=== PATIENT | male | born 1985 | race Caucasian/White ===

== ENCOUNTER → 2022-02-24 | Outpatient (CLI) | payer BC, OTHER | END | disposition home or self-care (01) | LOC: PREOP 05:31 | PROVIDERS: ATTEND Surgery | DX: Z01.818 Encounter for other preprocedural examination (principal) ==

== ENCOUNTER 2022-06-09 05:32 | Outpatient (CLI) | payer OTHER ==
[~2022-06-09] VITALS: Ht 180.3 cm; Wt 105.5 kg
[~2022-06-09 05:32] MED LIST: FLUT1AER4 IH; RT-ALBUINH INH
[2022-06-14] MEDS ORDERED: CETI10CA PO (10:05)
== END 2022-06-14 11:07 | disposition home or self-care (01) ==
LOC: PREOP 05:32
PROVIDERS: ATTEND Otolaryngology Otolaryngology/Facial Plastic Surgery
DX: Z01.818 Encounter for other preprocedural examination (principal)

== ENCOUNTER 2022-06-16 06:49 | Day surgery (SDC) | payer OTHER ==
[~2022-06-16] VITALS: Ht 180.3 cm; Wt 105.5 kg
[2022-06-16] VITALS (11 sets, daily range): BP systolic 91–138; BP diastolic 54–92
[~2022-06-16 06:49] MED LIST changes: +CETI10CA PO
[2022-06-16] MEDS ORDERED: HYDROCORTISONE 100 MG/2 ML (Solu-CORTEF) VIAL IV ONE (07:15)
[2022-06-16] MEDS ORDERED: AMPICILLIN/SULBACTAM INJECTION 1.5 GM in NS (IVPB) 100 ML IV ONE (07:15)
[2022-06-16] MEDS: LACTATED RINGERS 1,000 ML IV PRN ×2 (07:18→10:33)
[2022-06-16 07:34] LABS: BASOPHILS # (AUTO) 0.1 10^3/uL (0.0-0.1); BASOPHILS % (AUTO) 1 % (0-10); EOSINOPHILS # (AUTO) 0.1 10^3/uL (0.0-0.3); EOSINOPHILS % (AUTO) 1 % (0-10); HEMATOCRIT 46 % (40-54); HEMOGLOBIN 15.6 g/dL (13.3-17.7); LYMPHOCYTES # (AUTO) 7.7 10^3/uL (1.0-4.0); LYMPHOCYTES % (AUTO) 54 % (12-44); MEAN CORPUSCULAR HEMOGLOBIN 30 pg (25-34); MEAN CORPUSCULAR HGB CONC 34 g/dL (32-36); MEAN CORPUSCULAR VOLUME 90 fL (80-99); MEAN PLATELET VOLUME 9.7 fL (9.0-12.2); MONOCYTES # (AUTO) 1.1 10^3/uL (0.0-1.0); MONOCYTES % (AUTO) 8 % (0-12); NEUTROPHILS # (AUTO) 5.1 10^3/uL (1.8-7.8); NEUTROPHILS % (AUTO) 36 % (42-75); PLATELET COUNT 353 10^3/uL (130-400); WHITE BLOOD COUNT 14.1 10^3/uL (4.3-11.0)
[2022-06-16 07:54] LABS: CALCIUM 8.2 MG/DL (8.5-10.1); CREATININE SERUM 1.09 MG/DL (0.60-1.30); POTASSIUM 3.7 MMOL/L (3.6-5.0)
[2022-06-16 08:09] LABS: BASOPHILS % (MANUAL) 2 %; EOSINOPHILS % (MANUAL) 3 %; LYMPHOCYTES % (MANUAL) 37 %; MONOCYTES % (MANUAL) 3 %; NEUTROPHILS % (MANUAL) 36 %; REACTIVE LYMPHOCYTES 19 %
[2022-06-16 08:10] LABS: HYPERSEGMENTED NEUT SLIGHT; RBC MORPH NORMAL
[2022-06-16] MEDS ORDERED: BSS 15 ML ONE (08:25)
[2022-06-16] MEDS ORDERED: COCAINE HCL 4% 2 ML SYR ONE (08:25)
[2022-06-16] MEDS ORDERED: PHENYLEPHRINE 0.5% NASAL SPR (NEO-SYNEPHRINE) REG ONE ×2 (08:25→09:05)
[2022-06-16] MEDS ORDERED: LIDOCAINE/EPI 1%-1:100,000 (XYLOCAINE) 20ML ONE ×2 (08:25→10:14)
[2022-06-16] MEDS ORDERED: MIDAZOLAM 2 MG/2 ML (VERSED) VIAL ONE (08:40)
[2022-06-16] MEDS ORDERED: GLYCOPYRROLATE 0.2 MG/ML (ROBINUL) 2 ML VIAL ONE (08:40)
[2022-06-16] MEDS ORDERED: ONDANSETRON 4 MG/2 ML (SDV) Z0FRAN ONE (08:40)
[2022-06-16] MEDS ORDERED: LIDOCAINE PF 2% 5 ML (XYLOCAINE) VIAL ONE (08:40)
[2022-06-16] MEDS ORDERED: fentaNYL INJ 100 MCG/2 ML AMP ONE (08:40)
[2022-06-16] MEDS ORDERED: proPOfol 200 MG/20 ML (DIPRIVAN) VIAL IV ONE (08:40)
[2022-06-16] MEDS ORDERED: ROCURONIUM 50 MG/5 ML (ZEMURON) VIAL IV ONE (08:41)
[2022-06-16] MEDS ORDERED: NEOSTIGMINE (BLOXIVERZ ) 1 MG/1ML 10 ML VIAL ONE (08:41)
[2022-06-16] MEDS ORDERED: BSS 15 ML IO ONE (09:02)
[2022-06-16] MEDS ORDERED: COCAINE HCL 4% 2 ML SYR TOP ONE (09:04)
[2022-06-16] MEDS ORDERED: LIDOCAINE/EPI 1%-1:100,000 (XYLOCAINE) 20ML IJ ONE ×2 (09:06→10:19)
--- NOTE | 2022-06-16 09:22 | Progress Note-Pre Operative ---
Pre-Operative Progress Note Date of Available H&P: June 16, 2022 Date H&P Reviewed: June 16, 2022 Time H&P Reviewed: 08:30 History & Physical: H&P Reviewed, Patient Examed, No changes noted Changes from last HP none Pre-Operative Diagnosis: Bilateral Chronic Sinusitis, Deviated septum, Bialteral Hyper of INf Turbs GORDON BORJA MD June 16, 2022 09:22
--- NOTE | 2022-06-16 09:23 | Progress Note-Post Operative ---
Post-Operative Progess Note Surgeon (s)/Boilermaker Welder (s) Surgeon GORDON BORJA MD Boilermaker Welder n/a Pre-Operative Diagnosis Bilateral Chronic Sinusitis, Deviated septum, Bialteral Hyper of INf Turbs Post-Operative Diagnosis same Post-Op Procedure Note Date of Procedure: June 16, 2022 Name of Procedure Performed: Bilat ESS, Nasal Septoplasty, Bilat Red of INf Turbs Description & Findings Description and Findings: n/a Anesthesia Type get Estimated Blood Loss minimal Packing none. Specimen(s) collected/removed Bialt Chronic Sinus disease GORDON BORJA MD June 16, 2022 09:23
[2022-06-16] MEDS ORDERED: PROMETHAZINE INJ 25 MG/ML (PHENERGAN) AMP IVP PRN (09:30)
[2022-06-16] MEDS ORDERED: D5 1/2 NS W/KCL 20 MEQ/L 1,000 ML IV SCH (09:30)
[2022-06-16] MEDS ORDERED: HYDROcodone/APAP 5 MG/325 MG (LORTAB) TAB PO PRN (09:30)
[2022-06-16] MEDS ORDERED: predniSONE 20 MG TAB PO ONE (11:00)
[2022-06-16] MEDS ORDERED: morphine INJ 10 MG/ML 1ML (SYR OR VIAL) IVP ONE (11:30)
[2022-06-16] MEDS ORDERED: HYDROmorphone 2 MG/ML VIAL (DILAUDID) IV ONE (11:30)
[2022-06-16] MEDS ORDERED: ONDANSETRON 4 MG/2 ML (SDV) Z0FRAN IVP PRN (11:30)
[2022-06-16] MEDS ORDERED: AMOX-355 PO (11:51)
[2022-06-16] MEDS ORDERED: PRD20T PO (11:51)
[2022-06-16] MEDS ORDERED: ACHD5005 PO (11:51)
--- NOTE | 2022-06-16 12:29 | Anesthesia-General Post-Op ---
General Patient Condition Mental Status/LOC: Same as Preop Cardiovascular: Satisfactory Nausea/Vomiting: Absent Respiratory: Satisfactory Pain: Controlled Complications: Absent Post Op Complications Complications None Follow Up Care/Instructions Patient Instructions None needed. Anesthesia/Patient Condition Patient Condition Patient is doing well in SDC, resting comfortably. He is easily arousable C/O nasal congestion which is to be expected after the procedure. His right hand where the infiltrated IV was located is improved, minimal swelling still present. He has stable vital signs, no apparent adverse anesthesia problems. CINDY RENO DO June 16, 2022 12:29
== END 2022-06-16 14:25 | disposition home or self-care (01) ==
LOC: SDC 06:49
PROVIDERS: ATTEND Otolaryngology Otolaryngology/Facial Plastic Surgery
DX: J32.9 Chronic sinusitis, unspecified (principal); J34.2 Deviated nasal septum; J98.8 Other specified respiratory disorders; J34.3 Hypertrophy of nasal turbinates; E66.01 Morbid (severe) obesity due to excess calories; Z68.32 Body mass index [BMI] 32.0-32.9, adult; Z86.16 Personal history of COVID-19
CPT/HCPCS: 36415; 80048; 85007; 85027; 87081